=== PATIENT | male | born 1960 | race Hispanic/Latino ===

== ENCOUNTER → 2023-09-26 | Outpatient (CLI) | payer MEDICARE ==
[~2023-09-26] MED LIST: ALPR-410 PO; ASPI-556 PO; ATOR40TA71 PO; CHOL500051 PO; CLON0.1T PO; GABA-529 PO; LOSA100T59 PO; METO50TA18 PO; MINO50CA6 PO; PRAS10TA6 PO; REGADENOSON 0.4 MG/5 ML PF SYG IVP SCH; SITA1TAB6 PO; TRIA10.8 NS; ZOLP10TA6 PO
== END | disposition home or self-care (01) ==
LOC: RAH 08:29
PROVIDERS: ATTEND Internal Medicine Cardiovascular Disease
DX: R07.9 Chest pain, unspecified (principal)
CPT/HCPCS: 78452; 96374; 93017; J2785; A9500 ×2